=== PATIENT | male | born 1970 | race Two or more races ===

== ENCOUNTER → 2023-10-19 13:38 | Outpatient (REF) | payer BC, SELFPAY | LOC: HWRAD 13:38 | PROVIDERS: ATTENDING PHYSICIAN Family Medicine | DX: R35.0 Frequency of micturition (principal); R10.2 Pelvic and perineal pain | CPT/HCPCS: 76770 ==

== ENCOUNTER → 2023-10-31 10:48 | Outpatient (REF) | payer BC, SELFPAY | LOC: RAD 10:48 | PROVIDERS: ATTENDING PHYSICIAN Family Medicine | DX: K76.0 Fatty (change of) liver, not elsewhere classified (principal) | CPT/HCPCS: 76700 ==